=== PATIENT | female | born 1945 | race Caucasian/White ===

== ENCOUNTER → 2016-12-07 | Outpatient (CLI) | payer MEDICARE ==
[~2016-12-07] MED LIST: AMLO5TAB2 PO; ASCO500T29 PO; CALC-138 PO; CALC1CAP8 PO; CHOL10003 PO; ELEC1000 PO; IBUP200C PO; LACT1CAP35 PO; OMNIPAQUE 350 MG/ML, 100ML BOTTLE ONE; OXYC-302 PO; PROM12.553 RC; PROM25TA10 PO; TRAM-28 PO; UBID200C4 PO; VIT1TABL32 PO; curcumin PO; magnesium PO; potassium PO; tylenol PO
== END | disposition home or self-care (01) ==
LOC: CFH 09:17
PROVIDERS: ATTEND Surgery
DX: K76.0 Fatty (change of) liver, not elsewhere classified (principal); K80.20 Calculus of gallbladder without cholecystitis without obstruction; K57.30 Diverticulosis of large intestine without perforation or abscess without bleeding; I70.8 Atherosclerosis of other arteries
CPT/HCPCS: 74177; Q9967

== ENCOUNTER 2017-05-04 05:39 | Inpatient (IN) | payer MEDICARE ==
[~2017-05-04] VITALS: Ht 157.5 cm; Wt 86.2 kg
[~2017-05-04 05:39] MED LIST changes: +ASCO-90 PO; -ASCO500T29 PO; -IBUP200C PO; +IBUP200C5 PO; -OMNIPAQUE 350 MG/ML, 100ML BOTTLE ONE; -TRAM-28 PO; +TRAM-47 PO; -UBID200C4 PO; +UBID200C7 PO
[2017-05-04] MEDS ORDERED: FAMOTIDINE 20 MG/2 ML IVP ONE (06:00)
[2017-05-04] MEDS ORDERED: HYDROmorphone 1 MG/ML, 1ML IVPush PRN (06:00)
[2017-05-04] MEDS ORDERED: SODIUM CHLORIDE 0.9% 1,000ML IVBOLUS ONE (06:00)
[2017-05-04] MEDS ORDERED: ONDANSETRON 2MG/ML, 2ML IVPush ONE (06:00)
[2017-05-04] MEDS ORDERED: FAMOTIDINE 20 MG/2 ML ONE (06:10)
[2017-05-04] MEDS ORDERED: ONDANSETRON 2MG/ML, 2ML ONE (06:10)
[2017-05-04] MEDS ORDERED: HYDROmorphone 1 MG/ML, 1ML ONE (06:10)
[2017-05-04 06:59] LABS: ASPARTATE AMINO TRANSFERASE 17 U/L (15-37); BLOOD UREA NITROGEN 17 mg/dL (7-18)
[2017-05-04 07:28] LABS: HEMATOCRIT 49.5 % (34.6-47.8); HEMOGLOBIN 16.3 g/dL (11.7-16.4)
[2017-05-04] MEDS ORDERED: PROMETHAZINE 25 MG/ML, 1ML IM ONE (09:00)
[2017-05-04] MEDS ORDERED: hydrALAzine 20 MG/ML, 1ML IV ONE (09:00)
[2017-05-04] MEDS ORDERED: hydrALAzine 20 MG/ML, 1ML ONE (09:06)
[2017-05-04] MEDS ORDERED: PROMETHAZINE 25 MG/ML, 1ML ONE (09:06)
[2017-05-04 09:33] LABS: IS PT STATUS REG ER OR PRE ER? YES
[2017-05-04] MEDS ORDERED: POLYETHYLENE GLYCOL 17 GM PACKET PO PRN (11:30)
[2017-05-04] MEDS ORDERED: hydrALAzine 20 MG/ML, 1ML IVPush PRN (11:30)
[2017-05-04] MEDS ORDERED: ONDANSETRON 2MG/ML, 2ML IVPush PRN (11:30)
[2017-05-04] MEDS ORDERED: morphine SULFATE 10 MG/ML, 1ML IVPush PRN (11:30)
[2017-05-04] MEDS ORDERED: BISACODYL 10 MG SUPP PR PRN (11:30)
[2017-05-04] MEDS ORDERED: PANTOPRAZOLE 40 MG IV IVPush SCH (11:30)
[2017-05-04 12:35] VITALS: BP 122/75
[2017-05-04] MEDS: SODIUM CHLORIDE 0.9% 1,000 ML IV SCH (13:06)
[2017-05-04] MEDS: ENOXAPARIN 40 MG/0.4 ML SQ SCH (13:06)
[2017-05-04 13:29] VITALS: BP 122/79
[2017-05-04] MEDS ORDERED: POTASSIUM PHOSPHATE 22 MEQ in SODIUM CHLORIDE 0.9% 500 ML IV ONE (16:30)
[2017-05-04 17:00] VITALS: BP 167/90
[2017-05-04] MEDS: INSULIN ASPART 100 UNITS/ML, PEN SQ-INSULIN SCH ×2 (17:00→20:58)
[2017-05-04] MEDS: PROMETHAZINE 25 MG/ML, 1ML IM PRN ×2 (18:50→22:27)
[2017-05-04 20:39] VITALS: BP 137/72
[2017-05-04] MEDS: FAMOTIDINE 20 MG/2 ML IVPush SCH (20:57)
[2017-05-05] MEDS: INSULIN ASPART 100 UNITS/ML, PEN SQ-INSULIN SCH ×4 (00:43→20:39)
[2017-05-05 01:57] VITALS: BP 120/72
[2017-05-05] MEDS: SODIUM CHLORIDE 0.9% 1,000 ML IV SCH ×3 (05:10→21:21)
[2017-05-05 05:38] LABS: HEMATOCRIT 39.9 % (34.6-47.8); HEMOGLOBIN 13.1 g/dL (11.7-16.4); WHITE BLOOD COUNT 6.2 x10^3/uL (3.4-10)
[2017-05-05] MEDS: PROMETHAZINE 25 MG/ML, 1ML IM PRN (06:24)
[2017-05-05 06:29] LABS: ASPARTATE AMINO TRANSFERASE 30 U/L (15-37); BLOOD UREA NITROGEN 10 mg/dL (7-18)
[2017-05-05 07:41] VITALS: BP 123/73
[2017-05-05] MEDS: SENNA/DOCUSATE TABLET PO SCH (08:49)
[2017-05-05] MEDS: FAMOTIDINE 20 MG/2 ML IVPush SCH (08:49)
[2017-05-05 12:56] VITALS: BP 164/78
[2017-05-05] MEDS ORDERED: ACETAMINOPHEN 325 MG TABLET ONE (13:01)
[2017-05-05] MEDS: ACETAMINOPHEN 325 MG TABLET PO PRN ×2 (13:03→17:25)
[2017-05-05] MEDS: ENOXAPARIN 40 MG/0.4 ML SQ SCH (13:03)
[2017-05-05] MEDS: METOPROLOL TARTRATE 25 MG TABLET PO SCH (13:04)
[2017-05-05 20:14] VITALS: BP 137/66
[2017-05-06] MEDS: ACETAMINOPHEN 325 MG TABLET PO PRN (01:10)
[2017-05-06 01:34] VITALS: BP 126/77
[2017-05-06 05:01] LABS: BLOOD UREA NITROGEN 8 mg/dL (7-18)
[2017-05-06] MEDS: SODIUM CHLORIDE 0.9% 1,000 ML IV SCH ×2 (05:28→13:11)
[2017-05-06] MEDS: INSULIN ASPART 100 UNITS/ML, PEN SQ-INSULIN SCH ×3 (07:00→16:00)
[2017-05-06 07:23] VITALS: BP 157/72
[2017-05-06] MEDS: FAMOTIDINE 20 MG/2 ML IVPush SCH (08:23)
[2017-05-06] MEDS: SENNA/DOCUSATE TABLET PO SCH (08:23)
[2017-05-06] MEDS: METOPROLOL TARTRATE 25 MG TABLET PO SCH (08:23)
[2017-05-06] MEDS: ENOXAPARIN 40 MG/0.4 ML SQ SCH (13:09)
[2017-05-06] MEDS ORDERED: METO25TA35 PO (14:29)
[2017-05-06 15:21] VITALS: BP 178/110
== END 2017-05-06 18:13 | disposition home or self-care (01) | DRG 392 ==
LOC: ED 06:04 → EDIP 09:48 → 4EST 11:52
PROVIDERS: ADMIT Internal Medicine; ATTEND Internal Medicine
DX: K52.9 Noninfective gastroenteritis and colitis, unspecified (principal); I47.1 Supraventricular tachycardia; K76.0 Fatty (change of) liver, not elsewhere classified; D51.0 Vitamin B12 deficiency anemia due to intrinsic factor deficiency; R10.9 Unspecified abdominal pain; E86.0 Dehydration; E74.39 Other disorders of intestinal carbohydrate absorption; Z88.8 Allergy status to other drugs, medicaments and biological substances; H40.9 Unspecified glaucoma; I10 Essential (primary) hypertension; K59.00 Constipation, unspecified; K80.20 Calculus of gallbladder without cholecystitis without obstruction; Z82.49 Family history of ischemic heart disease and other diseases of the circulatory system; Z83.3 Family history of diabetes mellitus; R01.1 Cardiac murmur, unspecified; R82.71 Bacteriuria
CPT/HCPCS: 36415; 74020; 80048; 80053; 81001; 82962; 83036; 83690; 83735; 84100; 84443; 84484; 85025; 87086; 93005; 96361; 96372; 96374; 96375; J1170; J1650; J1815; J2405; J2550; J0360; J7030; J7040; S0028